=== PATIENT | male | born 1935 | race Caucasian/White ===

== ENCOUNTER 2021-01-19 12:06 | Outpatient (CLI) | payer MEDICARE | END 2021-01-19 12:07 | disposition home or self-care (01) | LOC: BICRAD 12:06 | PROVIDERS: ATTEND Physician Assistant | DX: R06.02 Shortness of breath (principal); Q25.46 Tortuous aortic arch | CPT/HCPCS: 71046 ==

== ENCOUNTER 2021-05-10 10:57 | Outpatient (CLI) | payer MEDICARE ==
[2021-05-10 11:45] LABS: Hemoglobin 12.3 g/dL (13.5-17.5); Mean Corpuscular HGB CONC 31.9 g/dL (32.0-36.0); Mean Corpuscular Hemoglobin 27.2 pg (27.0-33.0); Mean Corpuscular Volume 85.4 fl (81.2-95.1); Platelet Count 156 10x3/uL (150-450); RBC Distribution Width 15.5 % (11.5-14.5); Red Blood Cell (RBC) Count 4.52 10x6/uL (4.32-5.72); White Blood Cell (WBC) Count 4.8 10x3/uL (3.5-10.5)
[2021-05-10 12:02] LABS: INR-International Normal Ratio 1.1; Prothrombin Time 12.1 sec (9.5-12.1)
[2021-05-10 12:13] LABS: Anion Gap 12 mmol/L (10-20); BUN (Urea Nitrogen) 19 mg/dL (8.4-25.7); Calc. Creatinine Clearance 0 mL/min (70-130); Calcium 9.1 mg/dL (7.8-10.44); Carbon Dioxide 27 mmol/L (23-31); Chloride 107 mmol/L (98-107); Glucose 102 mg/dL (83-110); Potassium 4.3 mmol/L (3.5-5.1); Sodium 142 mmol/L (136-145)
[2021-05-10 20:55] LABS: SARS-CoV-2 PCR by NAA Not Detected (NotDetected)
== END 2021-05-10 10:58 | disposition home or self-care (01) ==
LOC: LABBT 10:57
PROVIDERS: ATTEND Internal Medicine Cardiovascular Disease
DX: Z01.812 Encounter for preprocedural laboratory examination (principal); I42.8 Other cardiomyopathies; I44.2 Atrioventricular block, complete; Z20.822 Contact with and (suspected) exposure to COVID-19
CPT/HCPCS: 80048; 85027; 85610; U0003; U0005

== ENCOUNTER 2021-09-06 09:57 | Outpatient (CLI) | payer MEDICARE ==
[2021-09-06 11:19] LABS: Hemoglobin 11.9 g/dL (13.5-17.5); Mean Corpuscular HGB CONC 31.9 g/dL (32.0-36.0); Mean Corpuscular Hemoglobin 27.3 pg (27.0-33.0); Mean Corpuscular Volume 85.6 fl (81.2-95.1); Mean Platelet Volume 9.2 fl (7.4-10.4); Platelet Count 216 10x3/uL (150-450); Red Blood Cell (RBC) Count 4.36 10x6/uL (4.32-5.72); White Blood Cell (WBC) Count 6.2 10x3/uL (3.5-10.5)
[2021-09-06 11:34] LABS: INR-International Normal Ratio 1.3
[2021-09-06 11:45] LABS: Anion Gap 14 mmol/L (10-20); BUN (Urea Nitrogen) 22 mg/dL (8.4-25.7); Calc. Creatinine Clearance 0 mL/min (70-130); Calcium 8.9 mg/dL (7.8-10.44); Carbon Dioxide 26 mmol/L (23-31); Chloride 107 mmol/L (98-107); Glucose 96 mg/dL (83-110); Potassium 4.4 mmol/L (3.5-5.1); Sodium 143 mmol/L (136-145)
[2021-09-06 18:08] LABS: SARS-CoV-2 PCR by NAA Not Detected (NotDetected)
== END 2021-09-06 09:58 | disposition home or self-care (01) ==
LOC: LABBT 09:57
PROVIDERS: ATTEND Internal Medicine Cardiovascular Disease
DX: Z01.812 Encounter for preprocedural laboratory examination (principal); I48.19 Other persistent atrial fibrillation; Z20.822 Contact with and (suspected) exposure to COVID-19
CPT/HCPCS: 80048; 85027; 85610; U0003; U0005

== ENCOUNTER 2021-09-11 05:47 | Day surgery (SDC) | payer MEDICARE ==
[2021-09-07 12:20] VITALS: BMI 30.9
[2021-09-11] MEDS ORDERED: Lidocaine 1% PF 5 ML VIAL ONE (07:20)
[2021-09-11] MEDS ORDERED: PROPOFOL 20 ML ONE (07:20)
== END 2021-09-11 08:37 | disposition home or self-care (01) ==
LOC: CCL 05:47
PROVIDERS: ATTEND Internal Medicine Cardiovascular Disease
PROC: 5A2204Z Restoration of Cardiac Rhythm, Single (ICD-10-PCS; principal; 2021-09-11)
DX: I48.19 Other persistent atrial fibrillation (principal); I44.2 Atrioventricular block, complete; I11.0 Hypertensive heart disease with heart failure; I50.22 Chronic systolic (congestive) heart failure; I42.8 Other cardiomyopathies; I25.10 Atherosclerotic heart disease of native coronary artery without angina pectoris; E78.5 Hyperlipidemia, unspecified; M10.9 Gout, unspecified; Z79.01 Long term (current) use of anticoagulants; Z79.899 Other long term (current) drug therapy; Z95.1 Presence of aortocoronary bypass graft; Z95.810 Presence of automatic (implantable) cardiac defibrillator
CPT/HCPCS: 92960; 93005; 93010; J2704

== ENCOUNTER 2023-08-11 14:46 | Outpatient (CLI) | payer MEDICARE ==
[2023-08-11 16:23] LABS: #Eosinphils 0.3 10x3/uL (0.0-0.5); #Monocytes 0.5 10x3/uL (0.0-1.1); #Neutrophils 4.1 10x3/uL (1.5-8.4); %Basophils 0.7 % (0.0-2.0); %Eosinophils 5.5 % (0.0-6.0); %Lymphocytes 18.7 % (18.0-47.0); %Monocytes 8.3 % (0.0-10.0); %Neutrophils 66.6 % (40.0-75.0); Hematocrit 39.9 % (38.8-50.0); Hemoglobin 13.1 g/dL (13.5-17.5); Mean Corpuscular HGB CONC 32.8 g/dL (32.0-36.0); Mean Corpuscular Hemoglobin 29.2 pg (27.0-33.0); Mean Corpuscular Volume 89.1 fl (81.2-95.1); Mean Platelet Volume 9.1 fl (7.4-10.4); Platelet Count 176 10x3/uL (150-450); RBC Distribution Width 14.5 % (11.5-14.5); Red Blood Cell (RBC) Count 4.48 10x6/uL (4.32-5.72); White Blood Cell (WBC) Count 6.2 10x3/uL (3.5-10.5)
[2023-08-11 16:36] LABS: ALT (SGPT) 18 U/L (8-55); AST (SGOT) 16 U/L (5-34); Albumin 3.9 g/dL (3.4-4.8); Alkaline Phosphatase 89 U/L (40-110); Anion Gap 13 mmol/L (10-20); BUN (Urea Nitrogen) 22 mg/dL (8.4-25.7); Bilirubin, Total 0.7 mg/dL (0.2-1.2); Calc. Creatinine Clearance 0 mL/min (70-130); Calcium 9.1 mg/dL (7.8-10.44); Carbon Dioxide 27 mmol/L (23-31); Chloride 106 mmol/L (98-107); Estimated GFR 76; Globulin 2.9 g/dL (2.4-3.5); Glucose 102 mg/dL (83-110); Potassium 4.5 mmol/L (3.5-5.1); Protein, Total 6.8 g/dL (5.8-8.1); Sodium 141 mmol/L (136-145)
== END 2023-08-11 14:47 | disposition home or self-care (01) ==
LOC: LABBT 14:46
PROVIDERS: ATTEND Internal Medicine Cardiovascular Disease
DX: Z01.812 Encounter for preprocedural laboratory examination (principal)
CPT/HCPCS: 80053; 85025

== ENCOUNTER 2023-08-13 05:40 | Day surgery (SDC) | payer MEDICARE ==
[2023-08-11 15:55] VITALS: BMI 30.9
[2023-08-13] MEDS ORDERED: Verapamil 5 MG/2 ML VIAL ONE (06:11)
[2023-08-13] MEDS ORDERED: Midazolam HCl 2 mg/2 ml Vial ONE (06:11)
[2023-08-13] MEDS ORDERED: Lidocaine 1% (PF) 30 ML VIAL ONE (06:11)
[2023-08-13] MEDS ORDERED: Heparin 10,000 UNITS/ 10 ML VIAL ONE (06:11)
[2023-08-13] MEDS ORDERED: Adenosine 6 MG/2 ML VIAL ONE (06:11)
[2023-08-13] MEDS ORDERED: fentaNYL 50 mcg/mL 1 mL Vial ONE (06:11)
[2023-08-13] MEDS ORDERED: Nitroglycerin 50 MG/250 ML BOT 0 ML ONE (06:12)
[2023-08-13] MEDS ORDERED: Atropine Sulfate 1 mg/10 ml Syringe ONE (06:20)
== END 2023-08-13 13:30 | disposition home or self-care (01) ==
LOC: CCL 05:40
PROVIDERS: ATTEND Internal Medicine Cardiovascular Disease
PROC: 4A023N7 Measurement of Cardiac Sampling and Pressure, Left Heart, Percutaneous Approach (ICD-10-PCS; principal; 2023-08-13)
DX: I25.10 Atherosclerotic heart disease of native coronary artery without angina pectoris (principal); N20.0 Calculus of kidney; E78.2 Mixed hyperlipidemia; I10 Essential (primary) hypertension; R00.1 Bradycardia, unspecified; G43.909 Migraine, unspecified, not intractable, without status migrainosus; R53.83 Other fatigue; I48.19 Other persistent atrial fibrillation; Z98.890 Other specified postprocedural states; Z79.890 Hormone replacement therapy
CPT/HCPCS: 93458; C1769 ×3; C1894; J3010; 99152; 99153; J0153; J0461; J1644; J2001; J2250

== ENCOUNTER 2024-11-25 02:06 | Inpatient (IN) | payer MEDICARE ==
[2024-11-25] MEDS ORDERED: hydrALAZINE 20 MG/ML VIAL SLOW IVP PRN (08:19)
[2024-11-25] MEDS ORDERED: Glucagon 1 MG/ML KIT IM PRN (08:19)
[2024-11-25] MEDS ORDERED: Ondansetron PF 4 MG/2 ML Vial IVP PRN (08:19)
[2024-11-25] MEDS ORDERED: Dextrose 5% in Water 1,000 ML IV PRN (08:19)
[2024-11-25] MEDS ORDERED: Dextrose 50% Abboject 50 ML SYRINGE SLOW IVP PRN (08:19)
[2024-11-25] MEDS ORDERED: Methocarbamol 500 MG TAB PO PRN (08:19)
[2024-11-25] MEDS: TETANUS, DIPHTHERIA TOX,ADULT (TDVAX) 0.5 ML VIAL IM ONE (09:34)
[2024-11-25 11:35] VITALS: BMI 25.7
[2024-11-25] MEDS ORDERED: CEFAZOLIN 2 GM VIAL ONE (13:48)
[2024-11-25] MEDS ORDERED: Ipratropium/Albuterol 3 ML NEB ONE (13:54)
[2024-11-25] MEDS ORDERED: Phenylephrine 40 MG/NS 250 ML 250 ML ONE (14:15)
[2024-11-25] MEDS ORDERED: fentaNYL PF 100 MCG/2 ML SYRINGE ONE (14:23)
[2024-11-25] MEDS ORDERED: SUGAMMADEX SODIUM 200 MG/2 ML VIAL ONE (14:23)
[2024-11-25] MEDS ORDERED: Ondansetron PF 4 MG/2 ML Vial ONE (14:23)
[2024-11-25] MEDS ORDERED: Rocuronium Bromide 10 MG/ML (10ML VIAL) ONE (14:23)
[2024-11-25] MEDS ORDERED: PROPOFOL 40 ML ONE (14:23)
[2024-11-25] MEDS ORDERED: Lidocaine 1% PF 5 ML VIAL ONE (14:23)
[2024-11-25] MEDS ORDERED: Dexamethasone 4 mg/ml Vial ONE (14:23)
[2024-11-25] MEDS ORDERED: ePHEDrine Sulfate 50 MG/10 ML VIAL ONE (14:25)
[2024-11-25] MEDS ORDERED: Lidocaine 2% PF 5 ML VIAL ONE (14:26)
[2024-11-25] MEDS ORDERED: Ondansetron HCl/PF 4 MG/2 ML Vial IVP PRN (16:02)
[2024-11-25] MEDS: CEFAZOLIN 2 GM in Sodium Chloride 0.9% 100 ML IVPB SCH (21:45)
[2024-11-25] MEDS: Amlodipine 5 MG TAB PO SCH (21:46)
[2024-11-25] MEDS: Rosuvastatin 10 MG TAB PO SCH (21:47)
[2024-11-25] MEDS: Latanoprost 0.005% Ophth Soln 2.5 ml Bottle EA EYE SCH (22:48)
[2024-11-25] MEDS: Timolol 0.25% Ophth Soln 5 ml Bottle EA EYE SCH (22:48)
[2024-11-26] MEDS: HYDROcodone/Acetaminophen 5/325 mg Tablet PO PRN (04:10)
[2024-11-26 05:53] LABS: #Basophils 0.03 10x3/uL (0.0-0.2); %Basophils 0.4 % (0.0-1.0); %Eosinophils 1.9 % (0.0-10.0); %Lymphocytes 6.5 % (21.0-51.0); %Monocytes 7.2 % (0.0-10.0); %Neutrophils 83.6 % (42.0-75.0); Hematocrit 32.1 % (42.0-52.0); Hemoglobin 10.5 g/dL (14.0-18.0); Mean Corpuscular HGB CONC 32.7 g/dL (32.0-36.0); Mean Corpuscular Hemoglobin 30.5 pg (27.0-31.0); Mean Corpuscular Volume 93.3 fL (78.0-98.0); Mean Platelet Volume 9.7 fL (7.4-10.4); Platelet Count 125 10x3/uL (130-400); RBC Distribution Width 14.7 % (11.5-14.5); Red Blood Cell (RBC) Count 3.44 mill/uL (4.70-6.10)
[2024-11-26] MEDS: CEFAZOLIN 2 GM in Sodium Chloride 0.9% 100 ML IVPB SCH (06:03)
[2024-11-26 06:38] LABS: Anion Gap 11 mmol/L (10-20); BUN (Urea Nitrogen) 26 mg/dL (8.4-25.7); Calc. Creatinine Clearance 65 mL/min (70-130); Calcium 8.3 mg/dL (7.8-10.44); Carbon Dioxide 26 mmol/L (23-31); Chloride 109 mmol/L (98-107); Estimated GFR 73; Glucose 134 mg/dL (83-110); Potassium 4.2 mmol/L (3.5-5.1); Sodium 142 mmol/L (136-145)
[2024-11-26] MEDS: Furosemide 40 MG TAB PO SCH (10:10)
[2024-11-26] MEDS: Ipratropium/Albuterol 3 ML NEB NEB PRN (10:57)
[2024-11-27] MEDS: Acetaminophen/Codeine 30-300mg Tablet PO PRN (03:03)
[2024-11-27] MEDS: Rivaroxaban 10 MG TAB PO SCH (17:55)
[2024-11-28 05:42] LABS: #Basophils 0.03 10x3/uL (0.0-0.2); %Basophils 0.4 % (0.0-1.0); %Eosinophils 8.5 % (0.0-10.0); %Lymphocytes 11.1 % (21.0-51.0); %Monocytes 9.5 % (0.0-10.0); %Neutrophils 70.2 % (42.0-75.0); Hematocrit 30.4 % (42.0-52.0); Hemoglobin 9.9 g/dL (14.0-18.0); Mean Corpuscular HGB CONC 32.6 g/dL (32.0-36.0); Mean Corpuscular Hemoglobin 29.7 pg (27.0-31.0); Mean Corpuscular Volume 91.3 fL (78.0-98.0); Mean Platelet Volume 9.8 fL (7.4-10.4); Platelet Count 131 10x3/uL (130-400); RBC Distribution Width 14.4 % (11.5-14.5); Red Blood Cell (RBC) Count 3.33 mill/uL (4.70-6.10)
[2024-11-28 05:52] LABS: Anion Gap 11 mmol/L (10-20); BUN (Urea Nitrogen) 30 mg/dL (8.4-25.7); Calc. Creatinine Clearance 67 mL/min (70-130); Calcium 8.2 mg/dL (7.8-10.44); Carbon Dioxide 30 mmol/L (23-31); Chloride 103 mmol/L (98-107); Estimated GFR 76; Glucose 136 mg/dL (83-110); Potassium 3.4 mmol/L (3.5-5.1); Sodium 141 mmol/L (136-145)
[2024-11-28] MEDS: Acetaminophen 325 MG TAB PO PRN (08:32)
[2024-11-28] MEDS: Potassium Chloride 20 MEQ TAB PO SCH (08:33)
[2024-11-28] MEDS: Senokot S 8.6-50 MG TAB PO SCH (20:11)
[2024-11-30 05:22] LABS: #Basophils Less than 0.03 10x3/uL (0.0-0.2); %Basophils 0.3 % (0.0-1.0); %Eosinophils 2.8 % (0.0-10.0); %Lymphocytes 14.6 % (21.0-51.0); %Monocytes 10.9 % (0.0-10.0); Hematocrit 32.3 % (42.0-52.0); Hemoglobin 10.6 g/dL (14.0-18.0); Mean Corpuscular HGB CONC 32.8 g/dL (32.0-36.0); Mean Corpuscular Hemoglobin 29.9 pg (27.0-31.0); Mean Platelet Volume 9.5 fL (7.4-10.4); Platelet Count 173 10x3/uL (130-400); RBC Distribution Width 13.9 % (11.5-14.5); Red Blood Cell (RBC) Count 3.55 mill/uL (4.70-6.10)
[2024-11-30 05:36] LABS: Anion Gap 12 mmol/L (10-20); BUN (Urea Nitrogen) 23 mg/dL (8.4-25.7); Calc. Creatinine Clearance 67 mL/min (70-130); Calcium 8.4 mg/dL (7.8-10.44); Carbon Dioxide 32 mmol/L (23-31); Chloride 102 mmol/L (98-107); Estimated GFR 76; Glucose 121 mg/dL (83-110); Potassium 3.4 mmol/L (3.5-5.1); Sodium 143 mmol/L (136-145)
[2024-11-30] MEDS: Saccharomyces boulardii 250 MG CAP PO SCH (08:43)
[2024-11-30] MEDS: Magnesium Citrate 300 ML BOT PO SCH (11:59)
[2024-11-30] MEDS: Potassium Chloride 20 MEQ TAB PO SCH (11:59)
[2024-12-01 07:57] LABS: Anion Gap 14 mmol/L (10-20); BUN (Urea Nitrogen) 25 mg/dL (8.4-25.7); Calc. Creatinine Clearance 69 mL/min (70-130); Calcium 8.6 mg/dL (7.8-10.44); Carbon Dioxide 33 mmol/L (23-31); Chloride 101 mmol/L (98-107); Estimated GFR 79; Glucose 139 mg/dL (83-110); Potassium 3.6 mmol/L (3.5-5.1); Sodium 144 mmol/L (136-145)
[2024-12-01] MEDS ORDERED: Ipratropium/Albuterol 3 ML NEB NEB PRN (08:11)
[2024-12-01] MEDS: Ipratropium/Albuterol 3 ML NEB NEB SCH ×2 (08:32→10:28)
[2024-12-01] MEDS: Ondansetron ODT 4 MG TAB PO PRN (10:50)
[2024-12-01] MEDS: Potassium Chloride 20 MEQ TAB PO SCH (11:50)
[2024-12-01] MEDS: Furosemide 20 MG (2 mL) VIAL SLOW IVP SCH ×2 (11:50→14:26)
[2024-12-01 17:43] LABS: Actual Bicarbonate (HCO3a) 29.6 mEq/L (22-28); Base Excess (BEa) 5.1 mEq/L (-2.0 to +3.0); CO2 Tension 43.3 mmHg (35.0-45.0); Calcium, Ionized (arterial) 1.14 mmol/L (1.12-1.30); Carboxyhemoglobin (COHb) 1.3 gm% (0.0-3.0); Hematocrit-ABG 36 % (42.0-52.0); Hemoglobin (Hb) 12.3 g/dL (14.0-18.0); O2 Tension (PaO2), arterial 81.5 mmHg (> 60.0); Potassium - ABG Lab 3.63 mmol/L (3.70-5.30); pH, Arterial 7.453 (7.35-7.45)
[2024-12-02 06:41] LABS: Anion Gap 14 mmol/L (10-20); BUN (Urea Nitrogen) 28 mg/dL (8.4-25.7); Calc. Creatinine Clearance 65 mL/min (70-130); Calcium 8.5 mg/dL (7.8-10.44); Carbon Dioxide 34 mmol/L (23-31); Chloride 100 mmol/L (98-107); Estimated GFR 74; Glucose 113 mg/dL (83-110); Magnesium 2.4 mg/dL (1.6-2.6); Potassium 3.6 mmol/L (3.5-5.1); Sodium 144 mmol/L (136-145)
[2024-12-03] MEDS: Furosemide 40 MG TAB PO SCH (09:43)
[2024-12-03 12:09] VITALS: BP 125/75; TEMP 97.4
[2024-12-04] MEDS ORDERED: Furosemide 40 MG TAB PO SCH (07:30)
== END 2024-12-03 13:18 | disposition swing bed (61) | DRG 521 ==
LOC: SURG B 07:47
PROVIDERS: ADMIT Surgery; ATTEND Surgery
PROC: 0SRS0JZ Replacement of Left Hip Joint, Femoral Surface with Synthetic Substitute, Open Approach (ICD-10-PCS; principal; 2024-11-25)
PROC: 4A033R1 Measurement of Arterial Saturation, Peripheral, Percutaneous Approach (ICD-10-PCS; 2024-12-01)
DX: S72.012A Unspecified intracapsular fracture of left femur, initial encounter for closed fracture (principal); I50.43 Acute on chronic combined systolic (congestive) and diastolic (congestive) heart failure; J96.01 Acute respiratory failure with hypoxia; K91.30 Postprocedural intestinal obstruction, unspecified as to partial versus complete; S72.032A Displaced midcervical fracture of left femur, initial encounter for closed fracture; W18.30XA Fall on same level, unspecified, initial encounter; I25.10 Atherosclerotic heart disease of native coronary artery without angina pectoris; M10.9 Gout, unspecified; E78.2 Mixed hyperlipidemia; Z98.890 Other specified postprocedural states; Z95.1 Presence of aortocoronary bypass graft; Z79.899 Other long term (current) drug therapy; G89.11 Acute pain due to trauma; I48.91 Unspecified atrial fibrillation; I11.0 Hypertensive heart disease with heart failure
CPT/HCPCS: 36415; 71045; 72170; 74018; 80048; 82805; 83605; 83735; 83880; 85025; 94640; C1713; C1776; J1100; J1940; J2405; J2704; J7620; Q0162

== ENCOUNTER 2025-05-03 09:01 | Inpatient (IN) | payer MEDICARE ==
[2025-04-27 10:56] VITALS: BMI 28.2
[2025-05-03] MEDS ORDERED: Vancomycin HCl 1.5 GM VIAL ONE (09:51)
[2025-05-03] MEDS ORDERED: Tranexamic Acid 1,000 MG/10 ML VIAL ONE (09:51)
[2025-05-03] MEDS ORDERED: Ropivacaine 0.5% HCl/PF (150 MG/30 ML VIAL) ONE (10:39)
[2025-05-03] MEDS ORDERED: Bupivacaine 0.25% HCL 30 ML VIAL ONE (11:05)
[2025-05-03] MEDS ORDERED: CEFAZOLIN 2 GM VIAL ONE (11:36)
[2025-05-03] MEDS ORDERED: Lidocaine 1% PF 5 ML VIAL ONE (11:56)
[2025-05-03] MEDS ORDERED: PROPOFOL 20 ML ONE (11:56)
[2025-05-03] MEDS ORDERED: Ondansetron PF 4 MG/2 ML Vial ONE ×2 (11:56→17:55)
[2025-05-03] MEDS ORDERED: Ropivacaine 0.2% 550 ML 550 ML NERVE BLCK SCH (12:15)
[2025-05-03] MEDS ORDERED: Ondansetron PF 4 MG/2 ML Vial IVP PRN (12:15)
[2025-05-03] MEDS ORDERED: HYDROcodone/Acetaminophen 10/325 mg Tablet PO PRN ×2 (12:15)
[2025-05-03] MEDS ORDERED: diphenhydrAMINE 25 MG CAP PO PRN (15:12)
[2025-05-03] MEDS: Brimonidine Tartrate 0.2% Ophth Soln 5 ml Bottle EA EYE SCH ×2 (21:00→22:04)
[2025-05-03] MEDS: Rosuvastatin 10 MG TAB PO SCH (21:45)
[2025-05-03] MEDS: Ferrous Gluconate 324 MG TAB PO SCH (21:46)
[2025-05-03] MEDS: Senokot S 8.6-50 MG TAB PO SCH (21:47)
[2025-05-03] MEDS: Ketorolac Tromethamine 30 MG (1 mL) VIAL IVP SCH (23:17)
[2025-05-04 05:46] LABS: Hematocrit 32.2 % (42.0-52.0); Hemoglobin 10.7 g/dL (14.0-18.0); Mean Corpuscular Hemoglobin 28.9 pg (27.0-31.0); Mean Corpuscular Volume 87.0 fL (78.0-98.0); Platelet Count 140 10x3/uL (130-400); Red Blood Cell (RBC) Count 3.70 mill/uL (4.70-6.10); White Blood Cell (WBC) Count 7.15 10x3/uL (4.8-10.8)
[2025-05-04 07:12] LABS: Anion Gap 11 mmol/L (10-20); BUN (Urea Nitrogen) 19 mg/dL (8.4-25.7); Calc. Creatinine Clearance 69 mL/min (70-130); Calcium 8.2 mg/dL (7.8-10.44); Carbon Dioxide 25 mmol/L (23-31); Chloride 107 mmol/L (98-107); Glucose 118 mg/dL (83-110); Potassium 4.3 mmol/L (3.5-5.1); Sodium 139 mmol/L (136-145)
[2025-05-04] MEDS: Multivitamin W/ Minerals 1 TAB PO SCH (09:57)
[2025-05-04] MEDS: Furosemide 40 MG TAB PO SCH (09:58)
[2025-05-05 05:57] LABS: Hematocrit 30.9 % (42.0-52.0); Hemoglobin 10.1 g/dL (14.0-18.0); Mean Corpuscular Hemoglobin 28.1 pg (27.0-31.0); Mean Corpuscular Volume 86.1 fL (78.0-98.0); Platelet Count 129 10x3/uL (130-400); Red Blood Cell (RBC) Count 3.59 mill/uL (4.70-6.10); White Blood Cell (WBC) Count 8.33 10x3/uL (4.8-10.8)
[2025-05-05] MEDS: Acetaminophen 325 MG TAB PO PRN (12:12)
[2025-05-05] MEDS ORDERED: HYDROcodone/Acetaminophen 5/325 mg Tablet PO PRN (14:31)
[2025-05-05] MEDS: Acetaminophen 325 MG TAB PO SCH (16:15)
[2025-05-06 05:48] LABS: Hematocrit 29.5 % (42.0-52.0); Hemoglobin 9.5 g/dL (14.0-18.0); Mean Corpuscular Hemoglobin 28.0 pg (27.0-31.0); Mean Corpuscular Volume 87.0 fL (78.0-98.0); Platelet Count 127 10x3/uL (130-400); Red Blood Cell (RBC) Count 3.39 mill/uL (4.70-6.10); White Blood Cell (WBC) Count 7.35 10x3/uL (4.8-10.8)
[2025-05-06 06:08] LABS: Anion Gap 13 mmol/L (10-20); BUN (Urea Nitrogen) 17 mg/dL (8.4-25.7); Calc. Creatinine Clearance 78 mL/min (70-130); Calcium 8.3 mg/dL (7.8-10.44); Carbon Dioxide 24 mmol/L (23-31); Chloride 104 mmol/L (98-107); Glucose 91 mg/dL (83-110); Magnesium 1.7 mg/dL (1.6-2.6); Potassium 3.5 mmol/L (3.5-5.1); Sodium 137 mmol/L (136-145)
[2025-05-06 16:03] VITALS: BP 136/62; TEMP 97.4
== END 2025-05-06 15:45 | DRG 470 ==
LOC: SDC 09:01 → SURG B 14:23 → SDC 21:09
PROVIDERS: ADMIT Orthopaedic Surgery; ATTEND Orthopaedic Surgery
PROC: 0SRC0J9 Replacement of Right Knee Joint with Synthetic Substitute, Cemented, Open Approach (ICD-10-PCS; principal; 2025-05-03)
PROC: 3E03329 Introduction of Other Anti-infective into Peripheral Vein, Percutaneous Approach (ICD-10-PCS; 2025-05-03)
PROC: 3E033XZ Introduction of Vasopressor into Peripheral Vein, Percutaneous Approach (ICD-10-PCS; 2025-05-03)
DX: M17.11 Unilateral primary osteoarthritis, right knee (principal); I50.22 Chronic systolic (congestive) heart failure; D62 Acute posthemorrhagic anemia; I48.20 Chronic atrial fibrillation, unspecified; E78.5 Hyperlipidemia, unspecified; I25.10 Atherosclerotic heart disease of native coronary artery without angina pectoris; I11.0 Hypertensive heart disease with heart failure; M19.90 Unspecified osteoarthritis, unspecified site; H40.9 Unspecified glaucoma; Z79.899 Other long term (current) drug therapy; Z88.8 Allergy status to other drugs, medicaments and biological substances; Z95.0 Presence of cardiac pacemaker; Z98.890 Other specified postprocedural states
CPT/HCPCS: 36415; 80048; 83735; 85027; A4306; C1713; C1776; C1889; J0169; J0665; J1885; J2250; J2405; J2704; J2795; J3010